=== PATIENT | male | born 1980 | race Caucasian/White ===

== ENCOUNTER → 2021-09-23 15:15 | Outpatient (BNVA) | payer OTHER, SELFPAY | PROVIDERS: Family Provider Family Medicine; PCP Family Medicine; Visit Provider Family Medicine | DX: S60.042A Contusion of left ring finger without damage to nail, initial encounter (principal); X58.XXXA Exposure to other specified factors, initial encounter | CPT/HCPCS: 73140 ==

== ENCOUNTER 2022-12-14 23:40 | Emergency (ER) | payer BC, SELFPAY ==
[2022-12-14 23:52] VITALS: BP 168/87; PULSE 91; RESP 14; TEMP 36.7; O2SAT 98
--- NOTE | 2022-12-15 00:33 | ED_ITS ---
HPI - Skin/Abscess/Foreign Bdy General: Chief complaint: Skin/Abscess/Foreign Body Stated complaint: rash on back, abdomen and arms Time Seen by Provider: 12/14/22 23:56 History of Present Illness: Patient is in today for rash. He reports that last night he noticed a raised bump on his arm that itched a little bit. He reports that over the course of last night and today he has developed a more raised red bumps across his low back to both sides also on both arms. He reports it is not extremely itchy but he does have some itching on his scalp although he has not noted rash on the scalp. He denies any swelling of his mouth, lips, tongue. He denies any difficulty breathing. He states that he has been on amoxicillin x8 days for a really bad ear infection. He reports that he has never taken amoxicillin in the past. He states that his ears are feeling better. Associated symptoms: Deny chills, fever(s), nausea or vomiting Review of Systems Const: Denies: fever(s), chills or body aches ENMT: Reports: change in hearing and nasal congestion; Denies: throat pain, hoarseness or swelling of lips/tongue Card: Denies: chest pain or palpitations Resp: Denies: dyspnea, productive cough or non-productive cough GI: Denies: abdominal pain, nausea or vomiting Skin/Breast: Reports: rash, pruritus and erythema PFSH ED PFSH: Family History Other Diabetes Social History Smoking and tobacco status: current every day smoker Physical Exam Const: COMMON NORMALS: no acute distress, patient oriented x3 and alert HENMT: TYMPANIC MEMBRANE: TM abnormal TM laterality: bilateral wth effusion serous and other (Left slightly erythematous) Neck/C-Spine: COMMON NORMALS: no JVD Resp: COMMON NORMALS: normal respiratory effort, No use of accessory muscles and clear to auscultation bilaterally AUSCULTATION: clear to auscultation brice aterally Cardio: COMMON NORMALS: no JVD, regular rate, regular rhythm, S1 normal heart sound present, S2 normal heart sound present and No murmurs present (Cardio) RATE: regular rate RHYTHM: regular rhythm HEART SOUNDS: S1 normal heart sound present and S2 normal heart sound present Neuro: COMMON NORMALS: patient oriented x3 SENSORIUM/ORIENTATION: Yes alert Skin: NARRATIVE SKIN EXAM: There is a raised sandpaper type rash along patient's low back also bilateral arms scattered on the trunk anterior. No rash noted to the face. No swelling noted to the mouth, lips, tongue. No rash noted to the lower extremities Course Vital Signs: Vital signs: Vital Signs Temperature 98.0 F 12/14/22 23:52 Pulse Rate 91 12/14/22 23:52 Respiratory Rate 14 12/14/22 23:52 Blood Pressure 168/87 12/14/22 23:52 Pulse Oximetry 98 12/14/22 23:52 Oxygen Delivery Me thod 12/14/22 23:52 MDM - Skin/Abscess/Foreign Bdy Medicial Decision Making Consider contact dermatitis, allergic reaction to antibiotic, atopic dermatitis Patient has been on 8 days of amoxicillin is never had this medication in the past. We will go ahead and treat with steroid to help with allergic reaction. Advised patient to stop the amoxicillin. His ears appear to be healing as expected from recent infection. Advised him to have reevaluation of his ears next week at his primary care provider's office. At this time I do not believe the patient needs to be started on an additional antibiotic switching from amoxicillin. Advised patient on possible benefits and side effects of medications provided today. Follow-up with primary care provider next week. Return to the ER for new or worsening symptoms including, but not limited to, increased rash, swelling mouth, lips, tongue, difficulty breathing. Discharge Plan Discharge Patient Disposition: Home Clinical Impression: Allergic reaction to drug Condition: Stable Prescriptions: New prednisone 20 mg tablet 40 mg PO DAILY 5 Days Qty: 10 0RF No Action atenolol PO DAILY Vicks DayQuil Cough 5 mg/5 mL syrup 10 mg PO Q8H Discharge Orders: Discharge ED (Routine); Ordered 12/15/22 Ordered By: [place] Cota Referrals: Bridget Barber FNP [Primary Care Provider] - Discharge Diet: Usual diet Discharge Activity: Resume usual activity Patient Instructions: Allergic Reaction Activity Restrictions/Additional Instructions: I suspect you are having allergic reaction to amoxicillin antibiotic. Stop amoxicillin. Your ears do not look to be infected at this time. You do still have fluid behind both eardrums however. Steroid injection was given in ER tonight. Prednisone is ordered to start tomorrow for 5 days be sure and take this medication with food. Follow-up with your primary care provider next week to have them reevaluate your ears since the antibiotic was stopped 2 days early. Return to the ER as needed for any new or worsening symptoms including, but not limited to, increasing rash, swelling of the mouth, tongue, lips, difficulty breathing. Coding Level of Care Code ED Group Sales Coordinator for Will Mcconnell
[2022-12-15] MEDS: famotidine 20 mg Tablet 40 MG PO (00:38)
[2022-12-15] MEDS: dexamethasone 10 mg/mL INJ IM (00:38)
[2022-12-15 01:04] VITALS: BP 144/99; PULSE 92; RESP 16; O2SAT 97
== END 2022-12-15 01:06 | disposition home or self-care (01) ==
PROVIDERS: Emergency Provider Nurse Practitioner Family; PCP Nurse Practitioner
DX: T78.40XA Allergy, unspecified, initial encounter (principal); T36.0X5A Adverse effect of penicillins, initial encounter; F17.210 Nicotine dependence, cigarettes, uncomplicated; X58.XXXA Exposure to other specified factors, initial encounter
CPT/HCPCS: 96372; 99284; J1100